=== PATIENT | male | born 1975 | race Caucasian/White ===

== ENCOUNTER 2021-04-11 23:44 | Emergency (ER) | payer OTHER ==
[~2021-04-11] VITALS: Ht 182.9 cm; Wt 111.3 kg
[2021-04-11 23:58] VITALS: BP 141/89
== END 2021-04-12 00:02 | disposition left against medical advice (07) ==
LOC: ER 23:44
DX: R06.02 Shortness of breath (principal); Z53.21 Procedure and treatment not carried out due to patient leaving prior to being seen by health care provider